=== PATIENT | female | born 1985 ===

== ENCOUNTER → 2018-11-14 | Outpatient (CLI) | payer OTHER ==
[~2018-11-14] MED LIST: CONTRAST GIVEN. MC PRN; IOHEXOL 350 MG/ML 100 ML VIAL. IV ONE
--- NOTE | 2018-11-14 09:21 | RAD ---
PQRS Compliance Statement: One or more of the following individualized dose reduction techniques were utilized for this examination: 1. Automated exposure control 2. Adjustment of the mA and/or kV according to patient size 3. Use of iterative reconstruction technique CT CHEST WITH CONTRAST, PULMONARY ANGIOGRAM History: HEMOPTYSIS X 1 3 WEEKS AGO Comparison: None. Technique: Helical CT of the chest was performed after the administration of 100 cc Omnipaque 350 intravenous contrast according to PE protocol. Axial and coronal reconstructions were obtained. 3-D MIP images were constructed to better evaluate the pulmonary arteries. Findings: Pulmonary arteries are adequately opacified. There is no evidence of pulmonary embolism. There is no thoracic aortic dissection. There is pulsation artifact at the aortic root. The great vessels are normal in caliber. There is no adenopathy in the chest. Cardiac size is normal, no pericardial effusion. There is no pleural effusion or pneumothorax. The central airways are patent. Mild bilateral lower lobe atelectasis. No consolidation. Visualized upper abdomen is unremarkable. No acute bone abnormality. IMPRESSION: There is no pulmonary embolus. Electronically signed by: Esdras Roberts MD (11/14/2018 9:18 AM) [id number]
== END | disposition home or self-care (01) ==
LOC: CT 08:19
PROVIDERS: ATTEND Family Medicine
DX: R04.2 Hemoptysis (principal); J98.11 Atelectasis
CPT/HCPCS: 71275; Q9967